=== PATIENT | female | born 1950 | race Caucasian/White ===

== ENCOUNTER 2019-12-03 12:04 | Emergency (ER) | payer MEDICARE ==
[2019-12-03 12:35] LABS: EOSINOPHILS % (AUTO) 1.4 % (0.0-8.0); HEMATOCRIT 39.9 % (36-48); MEAN CORPUSCULAR HEMOGLOBIN 28.4 pg (27.0-33.0); MEAN CORPUSCULAR HGB CONC 33.3 g/dL (32.0-36.0); MEAN CORPUSCULAR VOLUME 85.1 fL (79-99); NEUTROPHILS % (AUTO) 64.3 % (40.0-77.0); PLATELET COUNT (AUTO) 335 K/uL (130-400); RED BLOOD CELL COUNT(AUTO) 4.69 MIL/uL (4.00-5.50); RED CELL DISTRIBUTION WIDTH 12.2 % (11.0-15.5); WHITE BLOOD COUNT (AUTO) 5.9 K/uL (4.8-10.8)
[2019-12-03 12:42] LABS: CREATININE 0.7 mg/dL (0.5-1.5); POTASSIUM 3.7 mmol/L (3.5-5.1)
[2019-12-03 12:48] LABS: BILIRUBIN,TOTAL 0.3 mg/dL (0.2-1.0); TOTAL PROTEIN, SERUM 7.5 g/dL (6.0-8.3)
[2019-12-03 12:49] LABS: ALBUMIN 4.2 g/dL (3.5-5.0)
[2019-12-03 13:07] LABS: APPEARANCE,URINE Clear (CLEAR); BILIRUBIN,URINE Negative (NEGATIVE); COLOR,URINE Yellow (YELLOW); GLUCOSE, URINE (UA) Negative (NEGATIVE); KETONES,URINE Negative (NEGATIVE); LEUKOCYTE ESTERASE ,URINE Negative (NEGATIVE); NITRATE,URINE Negative (NEGATIVE); OCCULT BLOOD,URINE Negative (NEGATIVE); PROTEIN,URINE Negative (NEGATIVE); UROBILINOGEN,URINE 0.2 mg/dL (0.2-1.0)
[2019-12-03] MEDS ORDERED: FAMOTIDINE/PF 20 MG/2 ML VIAL IV ONE (13:41)
[2019-12-03] MEDS ORDERED: SODIUM CHLORIDE 0.9% 500ML 500 ML IV ONE (13:42)
[2019-12-03] MEDS ORDERED: IOHEXOL-350 75 ML VIAL IV ONE (14:29)
== END 2019-12-03 16:20 | disposition home or self-care (01) ==
LOC: EDH 12:04
DX: R10.13 Epigastric pain (principal); Z90.49 Acquired absence of other specified parts of digestive tract
CPT/HCPCS: 36415; 74177; 80053; 81003; 83690; 85025; 93005; 96374; 99285; J3490; J7040; Q9967

== ENCOUNTER 2020-08-04 16:14 | Observation (INO) | payer MEDICARE ==
[~2020-08-04] VITALS: Ht 162.6 cm; Wt 72.6 kg
[2020-08-04 16:17] VITALS: BP 140/78
[2020-08-04 16:43] LABS: BASOPHILS % (AUTO) 0.9 % (0.0-5.0); EOSINOPHILS % (AUTO) 2.1 % (0.0-8.0); HEMATOCRIT 40.2 % (36-48); MEAN CORPUSCULAR HEMOGLOBIN 27.6 pg (27.0-33.0); MEAN CORPUSCULAR HGB CONC 32.8 g/dL (32.0-36.0); MEAN CORPUSCULAR VOLUME 84.1 fL (79-99); MONOCYTES % (AUTO) 9.6 % (3.0-13.0); NEUTROPHILS % (AUTO) 57.3 % (40.0-77.0); PLATELET COUNT (AUTO) 361 K/uL (130-400); RED BLOOD CELL COUNT(AUTO) 4.78 MIL/uL (4.00-5.50); RED CELL DISTRIBUTION WIDTH 12.4 % (11.0-15.5); WHITE BLOOD COUNT (AUTO) 6.8 K/uL (4.8-10.8)
[2020-08-04 16:45] LABS: APPEARANCE,URINE Clear (CLEAR); BILIRUBIN,URINE Negative (NEGATIVE); COLOR,URINE Yellow (YELLOW); GLUCOSE, URINE (UA) Negative (NEGATIVE); KETONES,URINE Trace mg/dL (NEGATIVE); LEUKOCYTE ESTERASE ,URINE Trace (NEGATIVE); NITRATE,URINE Negative (NEGATIVE); OCCULT BLOOD,URINE Negative (NEGATIVE); PH,URINE 8.5 (5.0-8.0); PROTEIN,URINE Negative (NEGATIVE)
[2020-08-04 16:54] LABS: CARBON DIOXIDE 29 mmol/L (21-32); CHLORIDE 105 mmol/L (101-111); CREATININE 0.7 mg/dL (0.5-1.5); GLOMERULAR FILTR. RATE CALC 88 mL/min (>60); GLUCOSE,RANDOM 111 mg/dL (70-105); POTASSIUM 3.4 mmol/L (3.5-5.1); SODIUM SERUM 142 mmol/L (136-145); UREA NITROGEN, BLOOD 13 mg/dL (7-18)
[2020-08-04 16:57] LABS: INR 1.1 (0.85-1.15); PROTHROMBIN TIME 11.9 SEC (9.6-11.6)
[2020-08-04 17:06] LABS: B-TYPE NATRIURETIC PEPTIDE 30 pg/mL (0-100)
[2020-08-04 17:07] LABS: ALANINE AMINOTRANSFERASE 33 U/L (12-78); ALBUMIN 4.3 g/dL (3.5-5.0); AMYLASE 52 U/L (25-115); ASPARTATE AMINOTRANSFERASE 28 U/L (10-37); BILIRUBIN,TOTAL 0.4 mg/dL (0.2-1.0); CREATINE KINASE, TOTAL 66 U/L (21-232); LIPASE 133 U/L (114-286); MYOGLOBIN 33 ng/mL (10-92); TOTAL PROTEIN, SERUM 7.8 g/dL (6.0-8.3); TROPONIN I < 0.04 ng/mL (0.00-0.06)
[2020-08-04 17:11] LABS: BACTERIA,URINE Rare /HPF (None Seen); RBC,URINE 0-1 /HPF (0-1); SQUAMOUS EPITHELIAL CELL,UR Few /HPF (0-2); WBC,URINE 0-1 /HPF (0-1)
[2020-08-04 17:16] VITALS: BP 136/76
[2020-08-04 17:31] LABS: ABG BASE EXCESS 0.1 mmol/L (-2.0-3.0); ABG HCO3 21.9 mmol/L (21.0-28.0); ABG OXYGEN SATURATION 97.7 % (95.0-99.0); ABG PCO2 29 mmHg (32-45)
[2020-08-04 18:05] VITALS: BP 132/81
[2020-08-04] MEDS ORDERED: KCL 20 MEQ ERTAB PO ONE ×2 (19:00→20:39)
[2020-08-04] MEDS ORDERED: ACETAMINOPHEN 500 MG TABLET PO ONE (19:15)
[2020-08-04] MEDS ORDERED: ASPIRIN 81 MG EC TAB PO ONE (19:15)
[2020-08-04] MEDS ORDERED: ONDANSETRON 4MG INJ IV PRN (19:30)
[2020-08-04] MEDS ORDERED: NITROGLYCERIN 0.4 MG SL TAB SL PRN (19:30)
[2020-08-04] MEDS ORDERED: ACETAMINOPHEN 325 MG TAB PO PRN (19:30)
[2020-08-04 19:40] VITALS: BP 132/81
[2020-08-04 20:03] LABS: THYROID STIMULATING HORMONE 0.64 uIU/mL (0.36-3.74)
[2020-08-04] MEDS ORDERED: ASPIRIN 81MG CHEW TAB ONE (20:51)
[2020-08-04] MEDS ORDERED: ACETAMINOPHEN 500 MG TABLET ONE (20:52)
[2020-08-04] MEDS: NITROGLYCERIN 1GM OINT 1 INCH/1GM TD SCH (20:57)
[2020-08-04] MEDS: FAMOTIDINE 20MG TAB PO SCH (21:01)
[2020-08-04 22:20] VITALS: BP 124/80
[2020-08-05] VITALS (7 sets, daily range): BP systolic 91–145; BP diastolic 60–76
[2020-08-05] MEDS: NITROGLYCERIN 1GM OINT 1 INCH/1GM TD SCH ×2 (03:23→18:00)
[2020-08-05 06:24] LABS: MEAN CORPUSCULAR HEMOGLOBIN 27.9 pg (27.0-33.0); MEAN CORPUSCULAR HGB CONC 32.6 g/dL (32.0-36.0); MEAN CORPUSCULAR VOLUME 85.5 fL (79-99); RED BLOOD CELL COUNT(AUTO) 4.56 MIL/uL (4.00-5.50); RED CELL DISTRIBUTION WIDTH 12.7 % (11.0-15.5); WHITE BLOOD COUNT (AUTO) 5.7 K/uL (4.8-10.8)
[2020-08-05 06:45] LABS: ALANINE AMINOTRANSFERASE 31 U/L (12-78); ALBUMIN 3.9 g/dL (3.5-5.0); ASPARTATE AMINOTRANSFERASE 27 U/L (10-37); BILIRUBIN,TOTAL 0.5 mg/dL (0.2-1.0); CARBON DIOXIDE 27 mmol/L (21-32); CHLORIDE 107 mmol/L (101-111); CHOLESTEROL 190 mg/dL (<200); CREATINE KINASE, TOTAL 46 U/L (21-232); CREATININE 0.6 mg/dL (0.5-1.5); GLOMERULAR FILTR. RATE CALC 105 mL/min (>60); GLUCOSE,RANDOM 107 mg/dL (70-105); HDL CHOLESTEROL 68 mg/dL (35-85); LDL DIRECT 113 mg/dL (0-99); MYOGLOBIN 36 ng/mL (10-92); POTASSIUM 4.5 mmol/L (3.5-5.1); SODIUM SERUM 142 mmol/L (136-145); TOTAL PROTEIN, SERUM 7.2 g/dL (6.0-8.3); TRIGLYCERIDES 95 mg/dL (30-200); TROPONIN I < 0.04 ng/mL (0.00-0.06); UREA NITROGEN, BLOOD 11 mg/dL (7-18)
[2020-08-05] MEDS: FAMOTIDINE 20MG TAB PO SCH (08:47)
[2020-08-05] MEDS: ACETAMINOPHEN 325 MG TAB PO PRN ×2 (08:48→09:55)
[2020-08-05] MEDS ORDERED: ENOXAPARIN SODIUM 30 MG/0.3 ML SQ SCH (09:00)
[2020-08-05] MEDS ORDERED: ASPIRIN 81 MG EC TAB PO SCH (09:00)
[2020-08-05 12:14] LABS: CREATINE KINASE, TOTAL 48 U/L (21-232); MYOGLOBIN 34 ng/mL (10-92); TROPONIN I < 0.04 ng/mL (0.00-0.06)
[2020-08-05] MEDS ORDERED: REGADENOSON 0.4 MG/5 ML PF SYG IVP SCH (13:30)
[2020-08-05] MEDS ORDERED: FLUT16H NASAL (16:31)
[2020-08-05] MEDS ORDERED: MULT-1258 PO (16:31)
[2020-08-05] MEDS ORDERED: ASPI-1114 PO (16:35)
[2020-08-05] MEDS ORDERED: MV-M1TAB20 PO (16:35)
[2020-08-05] MEDS ORDERED: ATORVASTATIN 20 MG TABLET PO SCH (21:00)
== END 2020-08-05 20:00 | disposition home or self-care (01) ==
LOC: EDH 16:14 → EDHIP 19:18
PROVIDERS: ADMIT Internal Medicine; ATTEND Internal Medicine
DX: I20.0 Unstable angina (principal); Z20.822 Contact with and (suspected) exposure to COVID-19; E87.6 Hypokalemia; B96.81 Helicobacter pylori [H. pylori] as the cause of diseases classified elsewhere; N20.0 Calculus of kidney; K57.30 Diverticulosis of large intestine without perforation or abscess without bleeding; I48.91 Unspecified atrial fibrillation; Z90.710 Acquired absence of both cervix and uterus; Z90.49 Acquired absence of other specified parts of digestive tract; Z98.890 Other specified postprocedural states
CPT/HCPCS: 36415 ×2; 36600; 71045; 74176; 78452; 80053 ×2; 80061; 81001; 82150; 82550 ×3; 82803; 83690; 83735 ×2; 83874 ×3; 83880; 84439; 84443; 84481; 84484 ×5; 85025; 85027; 85378; 85610; 85730; 87088; 87635; 93005 ×3; 93017; 96372; 99285; A9500 ×2; G0378 ×22; J1650; J2785; 96374

== ENCOUNTER 2023-08-02 16:50 | Emergency (ER) | payer MEDICARE ==
[~2023-08-02] VITALS: Ht 162.6 cm; Wt 76.7 kg
[~2023-08-02 16:50] MED LIST: ASPI-1114 PO; FLUT16H NASAL; MULT-1258 PO; MV-M1TAB20 PO
[2023-08-02 18:15] LABS: BASOPHILS # (AUTO) 0.08 K/uL (0.00-0.20); BASOPHILS % (AUTO) 1.1 % (0.0-5.0); EOSINOPHILS # (AUTO) 0.07 K/uL (0.00-0.70); HEMATOCRIT 39.2 % (36-48); IMMATURE GRANULOCYTE ABSOLUTE 0.02 K/uL (0-1); LYMPHOCYTES # (AUTO) 2.2 K/uL (1.0-4.8); LYMPHOCYTES % (AUTO) 29.8 % (21.0-51.0); MEAN CORPUSCULAR HEMOGLOBIN 28.9 pg (27.0-33.0); MEAN CORPUSCULAR HGB CONC 33.7 g/dL (32.0-36.0); MONOCYTES # (AUTO) 0.6 K/uL (0.1-1.0); MONOCYTES % (AUTO) 8.7 % (3.0-13.0); NEUTROPHILS # (AUTO) 4.4 K/uL (1.8-7.7); NEUTROPHILS % (AUTO) 59.1 % (40.0-77.0); PLATELET COUNT (AUTO) 357 K/uL (130-400); RED BLOOD CELL COUNT(AUTO) 4.56 MIL/uL (4.00-5.50); RED CELL DISTRIBUTION WIDTH 12.5 % (11.0-15.5); WHITE BLOOD COUNT (AUTO) 7.4 K/uL (4.8-10.8)
[2023-08-02 18:24] LABS: CREATININE 0.6 mg/dL (0.5-1.0); POTASSIUM 3.7 mmol/L (3.5-5.1)
[2023-08-02 18:34] LABS: ALBUMIN 4.1 g/dL (3.5-5.0); BILIRUBIN,TOTAL 0.3 mg/dL (0.2-1.0); TOTAL PROTEIN, SERUM 7.2 g/dL (6.0-8.3)
[2023-08-02] MEDS: MORPHINE 2 MG SYG IVP ONE (19:06)
[2023-08-02] MEDS: ONDANSETRON 4MG INJ IVP ONE (19:06)
[2023-08-02] MEDS: 0.9%NACL 1000ML 1,000 ML IV ONE (19:06)
[2023-08-02 19:09] LABS: APPEARANCE,URINE CLEAR (CLEAR); BILIRUBIN,URINE NEGATIVE (NEGATIVE); COLOR,URINE LIGHT-YELLOW (YELLOW); GLUCOSE, URINE (UA) NEGATIVE (NEGATIVE); KETONES,URINE NEGATIVE (NEGATIVE); LEUKOCYTE ESTERASE ,URINE 25 Leu/uL (NEGATIVE); NITRATE,URINE NEGATIVE (NEGATIVE); OCCULT BLOOD,URINE NEGATIVE (NEGATIVE); PH,URINE 5.5 (5.0-8.0); PROTEIN,URINE NEGATIVE (NEGATIVE); UROBILINOGEN,URINE 0.2 mg/dL (0.2-1.0)
[2023-08-02 19:18] LABS: ADD UA MICROSCOPIC YES
[2023-08-02 19:21] LABS: BACTERIA,URINE RARE /HPF (None Seen); MUCUS,URINE RARE LPF (None Seen); RBC,URINE 0-1 /HPF (0-1); SQUAMOUS EPITHELIAL CELL,UR RARE /HPF (0-2)
[2023-08-02] MEDS ORDERED: IOHEXOL-350 75 ML VIAL IV ONE (19:36)
[2023-08-02 20:10] VITALS: BP 118/70; PULSE 64; RESP 19; O2SAT 100
[2023-08-02] MEDS ORDERED: NITR100C4 PO (20:12)
[2023-08-02] MEDS ORDERED: ACET-2743 PO (20:20)
== END 2023-08-02 20:35 | disposition home or self-care (01) ==
LOC: EDH 16:50
DX: K57.90 Diverticulosis of intestine, part unspecified, without perforation or abscess without bleeding (principal); N39.0 Urinary tract infection, site not specified; Z79.82 Long term (current) use of aspirin; Z79.899 Other long term (current) drug therapy; Z90.49 Acquired absence of other specified parts of digestive tract; Z90.710 Acquired absence of both cervix and uterus; Z98.890 Other specified postprocedural states
CPT/HCPCS: 99285; 74177; 96374; 96375; 84484; 80053; 83690; 85025; 81001; 36415; 93005; J2270; J7030; J2405; Q9967

== ENCOUNTER → 2023-10-31 | Outpatient (CLI) | payer MEDICARE ==
[~2023-10-31] MED LIST changes: +ACET-2743 PO; +NITR100C4 PO
== END | disposition home or self-care (01) ==
LOC: RAH 09:11
PROVIDERS: ATTEND Internal Medicine
DX: Z12.31 Encounter for screening mammogram for malignant neoplasm of breast (principal); R92.333 Mammographic heterogeneous density, bilateral breasts; D24.1 Benign neoplasm of right breast
CPT/HCPCS: 77067

== ENCOUNTER → 2024-03-30 | Outpatient (CLI) | payer MEDICARE ==
--- NOTE | 2024-03-30 11:50 | HMCIMG ---
UPPER GI TRACT, WO KUB REASON: GASTRO-ESOPHAGEAL REFLUX DISEASE W/O ESOPHAGITIS. COMPARISON: None TECHNIQUE: Biphasic upper GI series study was performed. FINDINGS: There is no obstruction to the antegrade passage of barium from mouth through jejunum. A small hiatal hernia is seen. Normal esophageal stripping wave is seen. There is gastroesophageal reflux seen to the level of upper mid thoracic esophagus. Stomach is well distended without ulceration or mass lesion. No bulb and sweep are unremarkable. IMPRESSION: Small hiatal hernia. Gastroesophageal reflux to level of upper mid thoracic esophagus. No obstruction.
== END | disposition home or self-care (01) ==
LOC: RAH 09:47
PROVIDERS: ATTEND Internal Medicine
DX: K21.9 Gastro-esophageal reflux disease without esophagitis (principal); K44.9 Diaphragmatic hernia without obstruction or gangrene
CPT/HCPCS: 74240